=== PATIENT | male | born 1950 ===

== ENCOUNTER 2025-05-26 06:32 | Day surgery (SDC) | payer MEDICARE ==
[2025-05-26] VITALS (8 sets, daily range): BP systolic 152–175; BP diastolic 89–128
[~2025-05-26] VITALS: Ht 182.9 cm; Wt 95.0 kg
[~2025-05-26 06:32] MED LIST: AMLO10 PO; ASPIR 8181 M1 PO; ATOR40TA PO; LISINOPRIL-HCT1 EACH PO; XTANDI40 M1 PO
[2025-05-26] MEDS ORDERED: NS 2,000 ML IV ONE (06:45)
[2025-05-26] MEDS ORDERED: CALCIUM CARBON500 M1 PO (06:50)
[2025-05-26] MEDS ORDERED: ZINC15 PO (06:51)
[2025-05-26] MEDS ORDERED: TOCO1000 PO (06:51)
[2025-05-26] MEDS ORDERED: MULVITA PO (06:51)
[2025-05-26] MEDS ORDERED: THERA-D2000 UNIT PO (06:51)
[2025-05-26] MEDS ORDERED: Naloxone HCl 0.4MG / ML 1ML Vial ONE (07:08)
[2025-05-26] MEDS ORDERED: Flumazenil 0.1 MG / ML 5ML Vial ONE (07:09)
[2025-05-26] MEDS ORDERED: Ondansetron HCl 2 MG / ML 2ML Vial ONE (07:09)
[2025-05-26] MEDS ORDERED: Midazolam HCl 1MG / ML 2ML Vial ONE (07:09)
[2025-05-26] MEDS ORDERED: Phenylephrine HCl 100 MCG/ML-NS 10MLSYR (1MG/10ML) ONE (07:10)
[2025-05-26] MEDS ORDERED: FentaNYL Citrate 50 MCG/ML 2 ML Injection ONE (07:10)
[2025-05-26] MEDS ORDERED: NS 1,000 ML IV ONE (07:10)
--- NOTE | 2025-05-26 09:04 | NUR ---
PT RETURNED TO RECOVERY ROOM IN BED. RIGHT FLANK SITE SOFT WITH SLIGHT TRACK OOZING AND INTACT DRESSING. PT SITTING UP WITH CALL LIGHT IN REACH. PT DRINKING COFFEE.
--- NOTE | 2025-05-26 09:31 | NUR ---
PT AMBULATED TO BR TO VOID. PT FAMILY IN ROOM. PT EATING BREAKFAST.
--- NOTE | 2025-05-26 09:32 | NUR ---
NO CHANGES TO R FLANK SITE.
--- NOTE | 2025-05-26 09:44 | NUR ---
PT STATES HE "FEELS GREAT."
--- NOTE | 2025-05-26 10:23 | NUR ---
NO CHANGES TO RIGHT FLANK SITE. DISCHARGE INSTRUCTIONS REVIEWED ALL QUESTIONS ANSWERED. 20 G IV DISCONTINUED FROM R WRIST WITH INTACT CANNULA. PT ESCORTED OUT VIA WHEELCHAIR ESCORT.
== END 2025-05-26 10:20 | disposition home or self-care (01) ==
LOC: MHTC 06:32
DX: N28.89 Other specified disorders of kidney and ureter (principal)
CPT/HCPCS: 50593; 99152; 99153; C2618; J2250; J2310; J2371; J2405; J3010; J7030